=== PATIENT | male | born 1955 | race Two or more races ===

== ENCOUNTER 2020-11-17 12:42 | Inpatient (IN) | payer MEDICARE, OTHER ==
[~2020-11-17] VITALS: Ht 177.8 cm; Wt 74.6 kg
[2020-11-17 15:02] LABS: BASOPHIL 0.9 % (0-2); EOSINOPHIL 2.5 & (0-7); HCT 33.3 % (42.0-52.0); HGB 11.3 g/dl (13.2-18.0); LYMPHOCYTE 21.9 % (15-48); MCH 30.5 pg (25.0-31.0); MCHC 33.9 g/dL (32.0-36.0); MCV 89.8 fL (78.0-100.0); MONOCYTE 7.3 % (0-12); MPV 9.9 fL (6.0-9.5); NEUTROPHIL 67.3 % (41-80); PLT 331 K/uL (150-400); RBC 3.71 M/uL (4.70-6.00); RDW 12.3 % (11.5-14.0); WBC 8.09 K/uL (4.0-10.5)
[2020-11-17 15:36] LABS: ALBUMIN 3.6 g/dL (3.4-5.0); BILIRUBIN - TOTAL 0.4 mg/dL (0.2-1.0); BUN/CREAT RATIO (CALC) 5.5 RATIO; CREATININE 7.32 mg/dL (0.67-1.17); GLOBULIN (CALCULATION) 4.6 g/dL; POTASSIUM 4.5 mmol/L (3.5-5.1); TOTAL PROTEIN 8.2 g/dL (6.4-8.2)
[2020-11-17] MEDS ORDERED: NORVASC5 MG PO (18:12)
[2020-11-17] MEDS ORDERED: LOPRESSOR25 MG PO (18:12)
[2020-11-17] MEDS ORDERED: TOPROL XL 25MG25 MG PO (18:14)
[2020-11-17] MEDS ORDERED: FOLIC ACID1 MG PO (18:15)
[2020-11-17] MEDS ORDERED: LASIX40 MG PO (18:16)
[2020-11-17] MEDS ORDERED: LIPITOR20 MG PO (18:17)
--- NOTE | 2020-11-17 18:27 | NUR ---
PATIENT STATES HE HAS DIALYSIS [id number]
--- NOTE | 2020-11-17 19:19 | NUR ---
NOTIFIED OF ELEVATED BP ON ADMIT. PATIENT STATES HAS NOT TAKEN BP MEDS TODAY. MEDS ORDERED FOR TONIGHT TO BE GIVEN
[2020-11-17] MEDS ORDERED: ASPIRIN EC81 MG PO (19:20)
[2020-11-17] MEDS ORDERED: GLUCOTROL5 MG PO (19:21)
[2020-11-17] MEDS ORDERED: NEPHRO-VITE TA0.8 MG PO (19:24)
[2020-11-17] MEDS ORDERED: LANTUS **100 UNITS/ SQ (19:27)
[2020-11-17] MEDS ORDERED: PHOSLO667 MG PO (19:28)
[2020-11-19 06:12] LABS: BASOPHIL 0.4 % (0-2); EOSINOPHIL 3.3 & (0-7); HCT 30.2 % (42.0-52.0); LYMPHOCYTE 11.5 % (15-48); MCH 29.9 pg (25.0-31.0); MCHC 33.1 g/dL (32.0-36.0); MCV 90.1 fL (78.0-100.0); MONOCYTE 6.9 % (0-12); MPV 9.8 fL (6.0-9.5); NEUTROPHIL 77.8 % (41-80); PLT 317 K/uL (150-400); RBC 3.35 M/uL (4.70-6.00); RDW 12.4 % (11.5-14.0); WBC 7.21 K/uL (4.0-10.5)
[2020-11-19 07:03] LABS: C-REACTIVE PROTEIN 3.4 mg/dL (<=0.90); CREATININE 9.73 mg/dL (0.67-1.17); POTASSIUM 4.1 mmol/L (3.5-5.1)
--- NOTE | 2020-11-19 17:01 | NUR ---
WOUND CARE SAW, STATED APPLIED [employer] TO WOUND AND WILL HAVE MD WRITE THE ORDER
[2020-11-20 07:39] LABS: BASOPHIL 0.5 % (0-2); EOSINOPHIL 2.3 % (0-7); HCT 29.8 % (42.0-52.0); HGB 9.8 g/dl (13.2-18.0); LYMPHOCYTE 14.3 % (15-48); MCH 29.5 pg (25.0-31.0); MCHC 32.9 g/dL (32.0-36.0); MCV 89.8 fL (78.0-100.0); MONOCYTE 7.7 % (0-12); MPV 9.9 fL (6.0-9.5); NEUTROPHIL 74.9 % (41-80); NRBC 0; PLT 302 K/uL (150-400); RBC 3.32 M/uL (4.70-6.00); RDW 12.6 % (11.5-14.0); WBC 7.9 K/uL (4.0-10.5)
[2020-11-20 08:01] LABS: CREATININE 6.68 mg/dL (0.67-1.17); POTASSIUM 4.4 mmol/L (3.5-5.1)
--- NOTE | 2020-11-20 11:03 | NUR ---
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 CALLED DR CUENCA OFFICE TO INQUIRE ABOUT WHAT HE NEEDED FAXED TO HIM ON [address] [employer] [phone], OFFICE STATED THEY WOULD CONTACT HIS NURSE TO SEE WHAT IS NEEDED AND WILL CALL BACK WITH THE INFORMATION,
--- NOTE | 2020-11-21 17:17 | NUR ---
11/21/20 Mr. Ricky Alvarenga lives with his spouse, son, and the son's GF. Patient will need IV Vancy at discharge. He and his son, Warren García, , prefer HH to Outpatient. They dod not have a preference for MEDICAL BILLING INSTRUCTOR. Mr. García's GF lives in the home and can administer the IVs. Patient will also need a rw.
--- NOTE | 2020-11-21 18:34 | NUR ---
PER DIALYSIS 1.5 LITERS OFF
--- NOTE | 2020-11-22 10:20 | NUR ---
ORDER RECEIVED FOR PICC LINE PLACEMENT. RISKS AND BENEFITS EXPLAINED. CONSENT SIGNED. PT'S RIGHT UPPER ARM BASILIC VEIN VISUALIZED USING THE SITE RITE 6 ULTRASOUND MACHINE. PT THEN PREPPED AND DRAPED IN STERILE FASHION. THE AREA WAS CLEANSED WITH CHLORAPREP. THE AREA WAS ANESTHETIZED WITH 1% LIDOCAINE. A 21GA GUIDE NEEDLE WAS USED. GOOD BLOOD RETURN. THE GUIDE WIRE WAS THEN REMOVED AND A CAP WAS PLACED ON THE END. THE PT WAS MEASURED FOR THE PICC PLACEMENT. PICC WAS TRIMMED AT 44 CM AND FLUSHED. THE INTRODUCER WAS REMOVED AND THE PICC CATHETER WAS GUIDED INTO POSITION. THE SHEATH WAS PEELED BACK. A STERILE BIOPATCH WAS PLACED AT THE INSERTION SITE. A STAT LOCK WAS PLACED ON. A STERILE TEGADERM WAS PLACED OVER THE PICC LINE. A STAT PORTABLE CHEST XRAY WAS OBTAINED. A STAT CHEST XRAY WAS OBTAINED. PT HAS A 4 FR 1 LUMEN POWER PICC. TRIMMED A 44 CM, INSERTION 1 CM, BICEP 31 CM. GOOD BLOOD RETURN NOTED. PT TOLERATED WELL. REPORT GIVEN TO [facility] INFANTE ON MED SURG. BED LOWERED TO LOWEST POSITION, SR UP X 2, CALL LIGHT WITHIN REACH. ADDENDUM 0917 DR. SHIPMAN ADVISED THE PICC LINE TO BE PULLED BACK 6 CM WHICH WOULD PUT THE END OF THE PICC LINE IN THE SVC. PICC LINE WAS PULLED BACK 6CM'S MORE SO THE INSERTION IS 7 CM. STYLET WAS PULLED AND THE END CAP APPLIED. DRESSING REAPPLIED TO RIGHT UPPER ARM. FLUSHED WITH 20 ML NS AND 30 UNITS OF HEPARIN. REPORT GIVEN TO NARESH CRAIG MED/SURG.
--- NOTE | 2020-11-22 12:15 | NUR ---
11/22/20 [facility] will administer the IV antibiotic. Kim Antoine, Pharmacist, is sending a progress report along with Dr. Figueroa's order to [facility], fax - [phone]. - A referral was made to [facility] for a rw.
[2020-11-22] MEDS ORDERED: HEPARIN 3010 UNIT/1 IV (15:33)
== END 2020-11-22 16:47 | disposition home health service (06) | DRG 539 ==
LOC: FER 12:42 → FMS 15:01 → FSNU 11-19 13:01 → FMS 11-21 09:01
PROVIDERS: Internal Medicine; ADMIT Internal Medicine
PROC: 5A1D70Z Performance of Urinary Filtration, Intermittent, Less than 6 Hours Per Day (ICD-10-PCS; principal; 2020-11-18)
PROC: 02HV33Z Insertion of Infusion Device into Superior Vena Cava, Percutaneous Approach (ICD-10-PCS; 2020-11-22)
DX: M86.9 Osteomyelitis, unspecified (principal); N18.6 End stage renal disease; I12.0 Hypertensive chronic kidney disease with stage 5 chronic kidney disease or end stage renal disease; L03.031 Cellulitis of right toe; E11.22 Type 2 diabetes mellitus with diabetic chronic kidney disease; Z20.822 Contact with and (suspected) exposure to COVID-19; E11.622 Type 2 diabetes mellitus with other skin ulcer; L97.519 Non-pressure chronic ulcer of other part of right foot with unspecified severity; S92.321A Displaced fracture of second metatarsal bone, right foot, initial encounter for closed fracture; S92.331A Displaced fracture of third metatarsal bone, right foot, initial encounter for closed fracture; Z99.2 Dependence on renal dialysis; Z98.41 Cataract extraction status, right eye; Z98.890 Other specified postprocedural states; W22.8XXA Striking against or struck by other objects, initial encounter; Z79.82 Long term (current) use of aspirin; Z79.4 Long term (current) use of insulin; Z79.899 Other long term (current) drug therapy
CPT/HCPCS: 36415; 36600; 71045; 73630; 73718; 80048; 80053; 80202; 82803; 82962; 83036; 85025; 86140; 87040; 94010; C1751; J1642; J3370; J7050; U0002

== ENCOUNTER 2020-12-09 10:59 | Inpatient (IN) | payer MEDICARE, OTHER ==
[~2020-12-09] VITALS: Ht 177.8 cm; Wt 77.2 kg
[~2020-12-09 10:59] MED LIST: ASPIRIN EC81 MG PO; FOLIC ACID1 MG PO; GLUCOTROL5 MG PO; HEPARIN 3010 UNIT/1 IV; LANTUS **100 UNITS/ SQ; LASIX40 MG PO; LIPITOR20 MG PO; LOPRESSOR25 MG PO; NEPHRO-VITE TA0.8 MG PO; NORVASC5 MG PO; PHOSLO667 MG PO; TOPROL XL 25MG25 MG PO
[2020-12-09 12:35] LABS: BASOPHIL 0.2 % (0-2); EOSINOPHIL 0.2 % (0-7); HCT 28.1 % (42.0-52.0); HGB 9.3 g/dl (13.2-18.0); LYMPHOCYTE 15.2 % (15-48); MCH 29.5 pg (25.0-31.0); MCHC 33.1 g/dL (32.0-36.0); MCV 89.2 fL (78.0-100.0); MONOCYTE 6.9 % (0-12); MPV 11.1 fL (6.0-9.5); NEUTROPHIL 77.2 % (41-80); NRBC 0; PLT 231 K/uL (150-400); RBC 3.15 M/uL (4.70-6.00); RDW 12.7 % (11.5-14.0); WBC 6.1 K/uL (4.0-10.5)
[2020-12-09 12:42] LABS: INR 1.14 (0.9-1.2); PTT 42.1 SECONDS (24.4-34.7)
[2020-12-09 12:43] LABS: D-DIMER 1.65 ug/mLFEU (0.00-0.41)
[2020-12-09 12:50] LABS: LACTIC ACID 1.1 mmol/L (0.4-1.9)
[2020-12-09 12:59] LABS: BILIRUBIN - TOTAL 0.5 mg/dL (0.2-1.0); BUN/CREAT RATIO (CALC) 5.3 RATIO; CREATININE 8.27 mg/dL (0.67-1.17); GLOBULIN (CALCULATION) 4.4 g/dL; POTASSIUM 3.4 mmol/L (3.5-5.1); TOTAL PROTEIN 7.4 g/dL (6.4-8.2)
[2020-12-10 06:55] LABS: BILIRUBIN NEGATIVE (NEGATIVE); BLOOD TRACE-INTACT Ery/uL (NEGATIVE); CLARITY CLEAR (CLEAR); COLOR YELLOW (YELLOW); GLUCOSE (U) 3+ mg/dL (NORMAL); LEUKOCYTES NEGATIVE Leu/uL (NEGATIVE); NITRITE NEGATIVE (NEGATIVE); PROTEIN 3+ mg/dL (NEGATIVE); UROBILINOGEN 0.2 mg/dL (0.2-1.0)
[2020-12-10 07:00] LABS: BASOPHIL 0 % (0-2); EOSINOPHIL 0 % (0-7); HCT 28.6 % (42.0-52.0); HGB 9.5 g/dl (13.2-18.0); MCH 29.3 pg (25.0-31.0); MCHC 33.2 g/dL (32.0-36.0); MCV 88.3 fL (78.0-100.0); MONOCYTE 5.9 % (0-12); MPV 11.3 fL (6.0-9.5); NEUTROPHIL 76.9 % (41-80); NRBC 0; PLT 220 K/uL (150-400); RBC 3.24 M/uL (4.70-6.00); RDW 12.6 % (11.5-14.0); WBC 2.4 K/uL (4.0-10.5)
[2020-12-10 07:03] LABS: LYMPHOCYTE 16.8 % (15-48)
[2020-12-10 07:13] LABS: URINARY WBC RARE
[2020-12-10 07:43] LABS: MAGNESIUM 2.1 mg/dL (1.8-2.4); PHOSPHORUS 7.8 mg/dL (2.6-4.7)
--- NOTE | 2020-12-10 15:32 | NUR ---
12/10/20 A referral was made to [facility] for home 02 per choice of Warren García, son, . Discharge is anticipated for 12/11/20.
[2020-12-11] MEDS ORDERED: VITAMIN D312.5 MCG/5 PO (03:39)
[2020-12-11] MEDS ORDERED: DEPAKOTE SPRIN125 M2 PO (03:41)
[2020-12-11] MEDS ORDERED: NEURONTIN300 MG PO (03:45)
[2020-12-11] MEDS ORDERED: COLACE100 MG PO (03:45)
[2020-12-11] MEDS ORDERED: CLEARLAX17 GM PO (03:50)
[2020-12-11] MEDS ORDERED: LANTUS100 UNIT/1 SC (03:51)
[2020-12-11] MEDS ORDERED: SYNTHROID100 MCG PO (03:53)
[2020-12-11] MEDS ORDERED: ATIVAN0.5 MG PO (03:54)
[2020-12-11] MEDS ORDERED: NORCO 5-325 TA1 EACH PO (03:55)
[2020-12-11] MEDS ORDERED: BETADINE30 ML EXT (03:58)
[2020-12-11] MEDS ORDERED: SILVADENE20 GM EXT (03:59)
[2020-12-11] MEDS ORDERED: JANUVIA50 MG PO (04:00)
[2020-12-11] MEDS ORDERED: TRAZODONE 50MG50 MG PO (04:01)
--- NOTE | 2020-12-11 05:37 | NUR ---
DIALYSIS NURSE, CHIDI, HAS MED & WILL ADMINISTER NEAR END OF HEMO DIALYSIS PERFORMING IN PTS ROOM.
[2020-12-11 10:19] LABS: BASOPHIL 0.2 % (0-2); EOSINOPHIL 0 % (0-7); HCT 30.5 % (42.0-52.0); HGB 10.3 g/dl (13.2-18.0); LYMPHOCYTE 9.4 % (15-48); MCH 29.2 pg (25.0-31.0); MCHC 33.8 g/dL (32.0-36.0); MCV 86.4 fL (78.0-100.0); MONOCYTE 5.5 % (0-12); MPV 10.9 fL (6.0-9.5); NEUTROPHIL 84.6 % (41-80); NRBC 0; PLT 267 K/uL (150-400); RBC 3.53 M/uL (4.70-6.00); RDW 12.7 % (11.5-14.0)
[2020-12-11 10:23] LABS: WBC 6.2 K/uL (4.0-10.5)
[2020-12-11 10:27] LABS: BUN/CREAT RATIO (CALC) 6.4 RATIO; C-REACTIVE PROTEIN 5.8 mg/dL (<=0.90); CREATININE 5.19 mg/dL (0.67-1.17); MAGNESIUM 1.9 mg/dL (1.8-2.4)
--- NOTE | 2020-12-12 14:21 | NUR ---
PATIENT SUPPLIED WITH NEW DRESSING MATERIAL FOR RIGHT FOOT, HE USES [employer] AT HOME SO HE DID THAT AND WE APPLIED NEW DRESSING
[2020-12-13 06:35] LABS: BASOPHIL 0.3 % (0-2); EOSINOPHIL 0.8 % (0-7); HCT 26.7 % (42.0-52.0); HGB 8.8 g/dl (13.2-18.0); MCH 29.5 pg (25.0-31.0); MCV 89.6 fL (78.0-100.0); MONOCYTE 8.2 % (0-12); MPV 11.4 fL (6.0-9.5); NRBC 0; PLT 247 K/uL (150-400); RBC 2.98 M/uL (4.70-6.00); RDW 12.7 % (11.5-14.0); WBC 3.9 K/uL (4.0-10.5)
[2020-12-13 06:38] LABS: LYMPHOCYTE 19.7 % (15-48)
[2020-12-13 06:41] LABS: BUN/CREAT RATIO (CALC) 7.2 RATIO; CREATININE 6.55 mg/dL (0.67-1.17); POTASSIUM 5.1 mmol/L (3.5-5.1)
[2020-12-13] MEDS ORDERED: ZOFRAN4 M1 PO (15:50)
[2020-12-14 05:06] LABS: HBSAG SCREEN Negative (Negative)
== END 2020-12-13 17:55 | disposition home or self-care (01) | DRG 177 ==
LOC: FER 10:59 → FMS 14:54
PROVIDERS: Emergency Medicine; Internal Medicine; Internal Medicine Nephrology; ADMIT Allergy & Immunology Allergy
PROC: 5A1D70Z Performance of Urinary Filtration, Intermittent, Less than 6 Hours Per Day (ICD-10-PCS; principal; 2020-12-09)
PROC: 8E0ZXY6 Isolation (ICD-10-PCS; 2020-12-09)
PROC: XW033E5 Introduction of Remdesivir Anti-infective into Peripheral Vein, Percutaneous Approach, New Technology Group 5 (ICD-10-PCS; 2020-12-09)
PROC: 5A1D70Z Performance of Urinary Filtration, Intermittent, Less than 6 Hours Per Day (ICD-10-PCS; 2020-12-11)
DX: U07.1 COVID-19 (principal); J12.82 Pneumonia due to coronavirus disease 2019; J96.01 Acute respiratory failure with hypoxia; N18.6 End stage renal disease; M86.9 Osteomyelitis, unspecified; D84.89 Other immunodeficiencies; I12.0 Hypertensive chronic kidney disease with stage 5 chronic kidney disease or end stage renal disease; E11.22 Type 2 diabetes mellitus with diabetic chronic kidney disease; E11.69 Type 2 diabetes mellitus with other specified complication; Z98.890 Other specified postprocedural states; Z99.2 Dependence on renal dialysis; Z79.82 Long term (current) use of aspirin; Z79.899 Other long term (current) drug therapy; Z79.84 Long term (current) use of oral hypoglycemic drugs
CPT/HCPCS: 36415; 36600; 71045; 71275; 80048; 80053; 80202; 81001; 82803; 82962; 83605; 83735; 83880; 84100; 85025; 85379; 85610; 85730; 86140; 87040; 87088; 87340; 93005; C9399; J1100; J1644; J2405; J3370; J7030; J7050; Q9967; U0002

== ENCOUNTER 2020-12-30 11:35 | Emergency (ER) | payer MEDICARE, OTHER ==
[~2020-12-30 11:35] MED LIST changes: +ATIVAN0.5 MG PO; +BETADINE30 ML EXT; +CLEARLAX17 GM PO; +COLACE100 MG PO; +DEPAKOTE SPRIN125 M2 PO; +JANUVIA50 MG PO; +LANTUS100 UNIT/1 SC; +NEURONTIN300 MG PO; +NORCO 5-325 TA1 EACH PO; +SILVADENE20 GM EXT; +SYNTHROID100 MCG PO; +TRAZODONE 50MG50 MG PO; +VITAMIN D312.5 MCG/5 PO; +ZOFRAN4 M1 PO
[2020-12-30 12:32] LABS: EOSINOPHIL 4.4 % (0-7); HCT 27.9 % (42.0-52.0); HGB 9.1 g/dl (13.2-18.0); LYMPHOCYTE 28.5 % (15-48); MCH 29.7 pg (25.0-31.0); MCHC 32.6 g/dL (32.0-36.0); MCV 91.2 fL (78.0-100.0); MONOCYTE 14.7 % (0-12); MPV 10.4 fL (6.0-9.5); NEUTROPHIL 50.4 % (41-80); NRBC 0; PLT 246 K/uL (150-400); RBC 3.06 M/uL (4.70-6.00); RDW 13.2 % (11.5-14.0); WBC 4.1 K/uL (4.0-10.5)
[2020-12-30 12:53] LABS: ALBUMIN 3.1 g/dL (3.4-5.0); BILIRUBIN - TOTAL 0.5 mg/dL (0.2-1.0); BUN/CREAT RATIO (CALC) 4.1 RATIO; CREATININE 5.17 mg/dL (0.67-1.17); GLOBULIN (CALCULATION) 4.2 g/dL; POTASSIUM 3.6 mmol/L (3.5-5.1); TOTAL PROTEIN 7.3 g/dL (6.4-8.2)
[2020-12-30] MEDS ORDERED: VENTOLIN HFA IN18 GM INH (17:03)
== END 2020-12-30 17:26 | disposition home or self-care (01) ==
LOC: FER 11:35
PROVIDERS: Nurse Practitioner Family
DX: J12.9 Viral pneumonia, unspecified (principal); I12.0 Hypertensive chronic kidney disease with stage 5 chronic kidney disease or end stage renal disease; N18.6 End stage renal disease; Z99.2 Dependence on renal dialysis; Z86.16 Personal history of COVID-19
CPT/HCPCS: 36415; 71045; 71275; 80053; 84484; 85025; 85379; 93005; Q9967

== ENCOUNTER 2021-01-31 10:20 | Emergency (ER) | payer MEDICARE ==
[~2021-01-31 10:20] MED LIST changes: +VENTOLIN HFA IN18 GM INH
[2021-01-31 11:32] LABS: BASOPHIL 1.7 % (0-2); EOSINOPHIL 4.3 % (0-7); HCT 40.6 % (42.0-52.0); LYMPHOCYTE 18.7 % (15-48); MCH 29.9 pg (25.0-31.0); MCV 93.3 fL (78.0-100.0); MONOCYTE 8.1 % (0-12); MPV 9.9 fL (6.0-9.5); NEUTROPHIL 66.8 % (41-80); NRBC 0; PLT 295 K/uL (150-400); RBC 4.35 M/uL (4.70-6.00); RDW 14.6 % (11.5-14.0); WBC 5.4 K/uL (4.0-10.5)
[2021-01-31 11:59] LABS: ALBUMIN 3.7 g/dL (3.4-5.0); BILIRUBIN - TOTAL 0.5 mg/dL (0.2-1.0); BUN/CREAT RATIO (CALC) 3.1 RATIO; CREATININE 5.44 mg/dL (0.67-1.17); GLOBULIN (CALCULATION) 4.2 g/dL; POTASSIUM 4.1 mmol/L (3.5-5.1); TOTAL PROTEIN 7.9 g/dL (6.4-8.2)
[2021-01-31 13:16] LABS: INR 1.15 (0.9-1.2); PROTHROMBIN TIME 14.1 SECONDS (11.8-13.4)
[2021-01-31] MEDS ORDERED: VENTOLIN HFA IN18 GM INH (15:47)
== END 2021-01-31 16:55 | disposition home or self-care (01) ==
LOC: FER 10:20
PROVIDERS: Emergency Medicine
DX: R06.02 Shortness of breath (principal); E11.22 Type 2 diabetes mellitus with diabetic chronic kidney disease; N18.6 End stage renal disease; Z99.2 Dependence on renal dialysis
CPT/HCPCS: 36415; 71250; 80053; 84484; 85025; 85610; 85730; 93005; 94664

== ENCOUNTER 2021-02-20 12:57 | Emergency (ER) | payer MEDICARE ==
[2021-02-20 14:04] LABS: BASOPHIL 1.5 % (0-2); EOSINOPHIL 2.5 % (0-7); HCT 42.5 % (42.0-52.0); HGB 13.9 g/dl (13.2-18.0); LYMPHOCYTE 16.7 % (15-48); MCH 29.4 pg (25.0-31.0); MCHC 32.7 g/dL (32.0-36.0); MONOCYTE 10.2 % (0-12); MPV 9.8 fL (6.0-9.5); NEUTROPHIL 68.7 % (41-80); NRBC 0; PLT 341 K/uL (150-400); RBC 4.72 M/uL (4.70-6.00); RDW 13.4 % (11.5-14.0); WBC 5.2 K/uL (4.0-10.5)
[2021-02-20 14:29] LABS: ALBUMIN 3.8 g/dL (3.4-5.0); BILIRUBIN - TOTAL 0.7 mg/dL (0.2-1.0); CREATININE 3.68 mg/dL (0.67-1.17); GLOBULIN (CALCULATION) 5.1 g/dL; TOTAL PROTEIN 8.9 g/dL (6.4-8.2)
[2021-02-20] MEDS ORDERED: MIRALAX 238GM238 GM PO (15:47)
[2021-02-20] MEDS ORDERED: COLACE100 MG PO (15:47)
== END 2021-02-20 16:23 | disposition home or self-care (01) ==
LOC: FER 12:57
PROVIDERS: Nurse Practitioner Family
DX: K59.00 Constipation, unspecified (principal); R10.9 Unspecified abdominal pain; E11.22 Type 2 diabetes mellitus with diabetic chronic kidney disease; E11.40 Type 2 diabetes mellitus with diabetic neuropathy, unspecified; I12.9 Hypertensive chronic kidney disease with stage 1 through stage 4 chronic kidney disease, or unspecified chronic kidney disease; N18.4 Chronic kidney disease, stage 4 (severe); Z99.2 Dependence on renal dialysis; Z86.16 Personal history of COVID-19; Z79.4 Long term (current) use of insulin
CPT/HCPCS: 36415; 80053; 82150; 83690; 85025

== ENCOUNTER 2021-02-26 11:00 | Emergency (ER) | payer MEDICARE ==
[~2021-02-26 11:00] MED LIST changes: +MIRALAX 238GM238 GM PO
[2021-02-26 13:22] LABS: BASOPHIL 2.1 % (0-2); EOSINOPHIL 2.8 % (0-7); HCT 45.3 % (42.0-52.0); HGB 14.5 g/dl (13.2-18.0); LYMPHOCYTE 20.9 % (15-48); MCH 29.4 pg (25.0-31.0); MCV 91.7 fL (78.0-100.0); MPV 9.8 fL (6.0-9.5); NRBC 0; PLT 360 K/uL (150-400); RBC 4.94 M/uL (4.70-6.00); RDW 13.6 % (11.5-14.0); WBC 5.4 K/uL (4.0-10.5)
[2021-02-26 13:40] LABS: ALBUMIN 3.7 g/dL (3.4-5.0); BILIRUBIN - TOTAL 0.6 mg/dL (0.2-1.0); BUN/CREAT RATIO (CALC) 3.9 RATIO; CREATININE 6.23 mg/dL (0.67-1.17); GLOBULIN (CALCULATION) 4.7 g/dL; TOTAL PROTEIN 8.4 g/dL (6.4-8.2)
== END 2021-02-26 15:11 | disposition home or self-care (01) ==
LOC: FER 11:00
PROVIDERS: Nurse Practitioner Family
DX: J90 Pleural effusion, not elsewhere classified (principal); I12.9 Hypertensive chronic kidney disease with stage 1 through stage 4 chronic kidney disease, or unspecified chronic kidney disease; E11.22 Type 2 diabetes mellitus with diabetic chronic kidney disease; N18.4 Chronic kidney disease, stage 4 (severe); E78.5 Hyperlipidemia, unspecified; Z99.2 Dependence on renal dialysis; Z79.4 Long term (current) use of insulin; Z79.84 Long term (current) use of oral hypoglycemic drugs; Z79.82 Long term (current) use of aspirin; Z79.899 Other long term (current) drug therapy
CPT/HCPCS: 36415; 36600; 71046; 80053; 82803; 84484; 85025; 93005